=== PATIENT | female | born 1980 | race Caucasian/White ===

== ENCOUNTER 2021-09-03 10:20 | Outpatient (CLI) | payer OTHER ==
[~2021-09-03 10:20] MED LIST: BUSP10TA23 PO; OLAN10TA74 PO; OXCA300T57 PO; TOPI100T37 PO
[2021-09-03 10:57] VITALS: BP 112/76
[2021-09-03 10:58] VITALS: BP 112/76
[2021-09-03] MEDS ORDERED: ARIPiprazole 10 MG TABLET PO ONE (11:45)
[2021-09-03] MEDS ORDERED: GABAPENTIN 300 MG CAPSULE PO ONE (11:45)
[2021-09-03] MEDS ORDERED: ARIPiprazole 10 MG TABLET ONE (11:48)
[2021-09-03] MEDS ORDERED: GABAPENTIN 300 MG CAPSULE ONE (11:49)
== END 2021-09-03 12:45 | disposition home or self-care (01) ==
LOC: CSU 10:20
PROVIDERS: ATTEND Psychiatry & Neurology Psychiatry
DX: F25.0 Schizoaffective disorder, bipolar type (principal)
CPT/HCPCS: 90792; Z7610